=== PATIENT | female | born 1940 | race Caucasian/White ===

== ENCOUNTER 2019-06-30 15:49 | Observation (INO) | payer OTHER ==
[~2019-06-30] VITALS: Ht 167.6 cm; Wt 82.6 kg
[~2019-06-30 15:49] MED LIST: ASPIR-LOW81 M1
[2019-06-30 16:24] LABS: BASOPHIL % 0.3 % (0-2); PLATELET COUNT 373 x10^3mcL (130-400); RED CELL DISTRIBUTION WIDTH 13.1 % (11.5-14.5)
[2019-06-30 16:48] LABS: CALCIUM 9.7 mg/dL (8.5-10.1); CARBON DIOXIDE 26.1 mmol/L (21-32); CHLORIDE SERUM 102 mmol/L (98-107); CREATININE SERUM 1.6 mg/dL (0.6-1.0); GLUCOSE SERUM 397 mg/dL (74-106); POTASSIUM SERUM 4.6 mmol/L (3.5-5.1); SODIUM SERUM 140 mmol/L (136-145)
[2019-06-30 16:52] LABS: ALBUMIN 3.6 g/dL (3.4-5.0); ALKALINE PHOSPHATASE 141 U/L (46-116); ALT/SGPT 31 U/L (14-59); AST/SGOT 22 U/L (15-37); BILIRUBIN TOTAL 0.48 mg/dL (0.20-1.00); TOTAL PROTEIN, SERUM 7.7 g/dL (6.4-8.2)
[2019-06-30] MEDS ORDERED: FORTAMET500 M1 PO (19:01)
[2019-06-30] MEDS ORDERED: DILTIAZEM100 MG/100 (19:02)
[2019-06-30] MEDS ORDERED: SOTALOL HCL80 MG PO (19:02)
[2019-06-30] MEDS ORDERED: ELIQUIS2.5 MG PO (19:02)
[2019-06-30] MEDS ORDERED: JANUVIA25 M1 (19:02)
[2019-06-30] MEDS ORDERED: SIMVASTATIN5 M2 PO (19:02)
[2019-06-30 21:28] VITALS: BP 141/59
[2019-06-30 21:35] VITALS: Ht 167.6 cm; Wt 82.6 kg
[2019-07-01 01:46] LABS: microscopic required? YES; urine erythrocyte TRACE (NEGATIVE)
[2019-07-01 06:20] VITALS: BP 119/60
[2019-07-01 07:51] LABS: ALBUMIN 3.2 g/dL (3.4-5.0); ALKALINE PHOSPHATASE 127 U/L (46-116); ALT/SGPT 32 U/L (14-59); AST/SGOT 21 U/L (15-37); BILIRUBIN TOTAL 0.4 mg/dL (0.20-1.00); CALCIUM 9.1 mg/dL (8.5-10.1); CARBON DIOXIDE 24.6 mmol/L (21-32); CHLORIDE SERUM 107 mmol/L (98-107); CREATININE SERUM 0.9 mg/dL (0.6-1.0); GLUCOSE SERUM 201 mg/dL (74-106); POTASSIUM SERUM 3.7 mmol/L (3.5-5.1); SODIUM SERUM 143 mmol/L (136-145); TOTAL PROTEIN, SERUM 6.9 g/dL (6.4-8.2)
[2019-07-01 08:37] VITALS: BP 123/76
[2019-07-01 12:30] VITALS: BP 125/63
[2019-07-01 13:27] VITALS: BP 135/78
== END 2019-07-01 14:55 | disposition home or self-care (01) ==
LOC: ED 15:49 → DU 18:58
PROVIDERS: Emergency Medicine; ADMIT Internal Medicine
DX: I48.91 Unspecified atrial fibrillation (principal); E11.65 Type 2 diabetes mellitus with hyperglycemia; E78.5 Hyperlipidemia, unspecified; M19.90 Unspecified osteoarthritis, unspecified site; E66.9 Obesity, unspecified; Z91.19 Patient's noncompliance with other medical treatment and regimen; R55 Syncope and collapse; R07.89 Other chest pain
CPT/HCPCS: 82962; 87804; G0378; J1644; J1815; J2405; J7030; Q0092

== ENCOUNTER 2019-07-05 12:03 | Inpatient (IN) | payer OTHER ==
[~2019-07-05] VITALS: Ht 167.6 cm; Wt 79.5 kg
[~2019-07-05 12:03] MED LIST changes: +DILTIAZEM100 MG/100; +ELIQUIS2.5 MG PO; +FORTAMET500 M1 PO; +JANUVIA25 M1; +SIMVASTATIN5 M2 PO; +SOTALOL HCL80 MG PO
[2019-07-05 13:04] LABS: BASOPHIL % 0.3 % (0-2); PLATELET COUNT 380 x10^3mcL (130-400)
[2019-07-05 13:09] LABS: ALKALINE PHOSPHATASE 138 U/L (46-116); ALT/SGPT 54 U/L (14-59); AST/SGOT 35 U/L (15-37); BILIRUBIN TOTAL 0.6 mg/dL (0.20-1.00); CALCIUM 9.6 mg/dL (8.5-10.1); CARBON DIOXIDE 23.6 mmol/L (21-32); CHLORIDE SERUM 102 mmol/L (98-107); CREATININE SERUM 1.4 mg/dL (0.6-1.0); GLUCOSE SERUM 372 mg/dL (74-106); POTASSIUM SERUM 4.9 mmol/L (3.5-5.1); SODIUM SERUM 137 mmol/L (136-145); TOTAL PROTEIN, SERUM 7.9 g/dL (6.4-8.2)
[2019-07-05 15:25] VITALS: BP 129/56
[2019-07-05 15:34] VITALS: Ht 167.6 cm; Wt 79.5 kg
[2019-07-05 20:35] VITALS: BP 111/50
[2019-07-05 22:26] LABS: microscopic required? YES; urine erythrocyte NEGATIVE (NEGATIVE)
[2019-07-06 05:38] VITALS: BP 118/59
[2019-07-06 06:44] LABS: PLATELET COUNT 312 x10^3mcL (130-400)
[2019-07-06 07:02] LABS: ALBUMIN 3.4 g/dL (3.4-5.0); ALKALINE PHOSPHATASE 121 U/L (46-116); ALT/SGPT 37 U/L (14-59); AST/SGOT 21 U/L (15-37); CALCIUM 9.4 mg/dL (8.5-10.1); CARBON DIOXIDE 26.1 mmol/L (21-32); CHLORIDE SERUM 105 mmol/L (98-107); CREATININE SERUM 0.9 mg/dL (0.6-1.0); GLUCOSE SERUM 169 mg/dL (74-106); MAGNESIUM 1.9 mg/dL (1.8-2.4); SODIUM SERUM 141 mmol/L (136-145); TOTAL PROTEIN, SERUM 6.9 g/dL (6.4-8.2)
[2019-07-06 09:12] VITALS: BP 117/57
[2019-07-06 13:10] VITALS: BP 113/57
[2019-07-06 17:02] VITALS: BP 119/62
[2019-07-06 23:44] VITALS: BP 116/73
[2019-07-07 05:53] VITALS: BP 129/77
[2019-07-07 06:49] LABS: BASOPHIL % 0.8 % (0-2); PLATELET COUNT 346 x10^3mcL (130-400); RED CELL DISTRIBUTION WIDTH 13.2 % (11.5-14.5)
[2019-07-07 07:23] LABS: ALKALINE PHOSPHATASE 119 U/L (46-116); ALT/SGPT 33 U/L (14-59); AST/SGOT 17 U/L (15-37); BILIRUBIN TOTAL 0.46 mg/dL (0.20-1.00); CARBON DIOXIDE 30.4 mmol/L (21-32); CHLORIDE SERUM 104 mmol/L (98-107); CREATININE SERUM 0.9 mg/dL (0.6-1.0); POTASSIUM SERUM 3.6 mmol/L (3.5-5.1); SODIUM SERUM 142 mmol/L (136-145); TOTAL PROTEIN, SERUM 7.3 g/dL (6.4-8.2)
[2019-07-07 07:26] VITALS: BP 141/89
[2019-07-07 07:29] LABS: CALCIUM 9.3 mg/dL (8.5-10.1); GLUCOSE SERUM 129 mg/dL (74-106)
[2019-07-07 07:58] LABS: MAGNESIUM 1.9 mg/dL (1.8-2.4)
[2019-07-07 08:04] LABS: ALBUMIN 3.3 g/dL (3.4-5.0)
[2019-07-07 10:07] VITALS: BP 141/89
[2019-07-07 12:42] VITALS: BP 111/74
== END 2019-07-07 13:50 | disposition home health service (06) | DRG 291 ==
LOC: ED 12:03 → DU 14:06
PROVIDERS: Emergency Medicine; ADMIT Internal Medicine Pulmonary Disease
DX: I11.0 Hypertensive heart disease with heart failure (principal); J96.01 Acute respiratory failure with hypoxia; I50.9 Heart failure, unspecified; I48.0 Paroxysmal atrial fibrillation; E86.0 Dehydration; E78.5 Hyperlipidemia, unspecified; E78.00 Pure hypercholesterolemia, unspecified; E11.9 Type 2 diabetes mellitus without complications; E66.9 Obesity, unspecified; Z68.29 Body mass index [BMI] 29.0-29.9, adult; Z79.01 Long term (current) use of anticoagulants; Z87.891 Personal history of nicotine dependence; Z90.710 Acquired absence of both cervix and uterus; Z79.899 Other long term (current) drug therapy; Z79.84 Long term (current) use of oral hypoglycemic drugs
CPT/HCPCS: 36600; 82962; 83880; G0378; J1815; J1940; J3490; Q0092